=== PATIENT | female | born 1980 | race Caucasian/White ===

== ENCOUNTER → 2018-11-08 | Outpatient (CLI) | payer BC ==
--- NOTE | 2018-11-12 09:43 | MM ---
Reason for exam: screening (asymptomatic). Baseline mammogram. History: Taking hormonal contraceptives beginning at age 25. Physical Findings: Nurse did not find any significant physical abnormalities on exam. MG Screening Mammo w CAD Bilateral CC and MLO view(s) were taken. The breast tissue is heterogeneously dense. This may lower the sensitivity of mammography. Focal asymmetry, two right CC, on left CC and MLO. These results were verbally communicated with the patient and result sheet given to the patient on 11/08/18. ASSESSMENT: Incomplete: need additional imaging evaluation, BI-RAD 0 RECOMMENDATION: Special view mammogram of both breasts.
--- NOTE | 2018-11-12 09:46 | MM ---
Reason for exam: additional evaluation requested from abnormal screening. History: Taking hormonal contraceptives beginning at age 25. Physical Findings: Breast exam preformed at baseline screening. MG Work Up Mamm w CAD BILAT Bilateral spot compression MLO view(s) were taken. Spot compression CC view(s) were taken of the right breast. The breast tissue is heterogeneously dense. This may lower the sensitivity of mammography. Finding: There is an equal density (isodense), obscured oval mass in the lower outer quadrant, anterior position of the left breast. There is no discrete abnormality right breast densities on compression. These results were verbally communicated with the patient and result sheet given to the patient on 11/08/18. ASSESSMENT: Incomplete: need additional imaging evaluation, BI-RAD 0 RECOMMENDATION: Ultrasound of the left breast.
--- NOTE | 2018-11-12 09:47 | USB ---
Reason for exam: additional evaluation requested from abnormal screening. History: Taking hormonal contraceptives beginning at age 25. US Breast Workup Limited LT Left limited breast ultrasound including focal area of concern, retroareolar and axilla demonstrates a 1.1 x 0.6 x 1.0cm oval, solid lesion at 5 o'clock. These results were verbally communicated with the patient and result sheet given to the patient on 11/08/18. ASSESSMENT: Suspicious, BI-RAD 4 RECOMMENDATION: Ultrasound core biopsy of the left breast. Called Dr. Staples with mammographic findings and has scheduled an appointment for the patient for 11/25/18 at 10:[address] Pereira. PRELIMINARY REPORT CALLED AND FAXED TO DR. PEREIRA ON 11/12/18.
== END | disposition home or self-care (01) ==
LOC: RADMAMWWP 10:54
PROVIDERS: ATTEND Obstetrics & Gynecology
DX: Z12.31 Encounter for screening mammogram for malignant neoplasm of breast (principal); R92.8 Other abnormal and inconclusive findings on diagnostic imaging of breast
CPT/HCPCS: 77066; 77067

== ENCOUNTER → 2018-12-12 | Day surgery (SDC) | payer BC ==
[2018-12-12 08:52] VITALS: RESP 16; BMI 24.6
--- NOTE | 2018-12-12 10:19 | USB ---
EXAMINATION TYPE: US biopsy breast VAD LT DATE OF EXAM: 12/12/2018 CLINICAL HISTORY: R92.8 Abnormal mammogram. TECHNIQUE: Ultrasound guided core biopsy of left breast. COMPARISON: 11/08/2018 left breast ultrasound and workup FINDINGS: The procedure of ultrasound guided core biopsy was explained to the patient. Benefits, alternatives, and risks were discussed. An informed consent was then obtained. Preprocedural timeout was performed. The patient was placed in supine positioning for imaging and for the procedure. The overlying skin was prepped and draped in usual sterile fashion. 10 cc of 1% lidocaine was used as anesthetic into the skin and subcutaneous tissue up to the 1.1 x 0.6 x 1.0 cm solid mass at the 5:00 position that is well-circumscribed, possible fibroadenoma. Biopsy was performed to exclude mucinous carcinoma, medullary carcinoma, or less likely invasive ductal carcinoma. Under ultrasound guidance, a 12-gauge vacuum assisted biopsy gun device was used to obtain 5 core samples. Following this, a coil-shaped biopsy marker was left in mass. No postprocedural mammogram was performed as the biopsy marker was clearly defined within the mass at the time of biopsy. The patient tolerated the procedure well without any immediate complication. The patient was kept in the radiology department for short stay after the procedure and then discharged home in stable condition. IMPRESSION: Successful, uncomplicated ultrasound guided core biopsy of a well- circumscribed possible fibroadenoma at the 5:00 position in the left breast, full pathology results to follow. Pathology Results: Benign LEFT BREAST, FIVE O'CLOCK, ULTRASOUND GUIDED CORE BIOPSY: Fibroadenoma. Recommendation Follow up ultrasound of the left breast in 6 months. RA
[2018-12-12 10:39] VITALS: BP 122/83; PULSE 76; TEMP 98.5
== END | disposition home or self-care (01) ==
LOC: RADUSWWP 08:37
PROVIDERS: ATTEND Surgery
DX: D24.2 Benign neoplasm of left breast (principal)
CPT/HCPCS: 88305; 19083; A4648; J2001

== ENCOUNTER → 2022-11-22 | Outpatient (CLI) | payer OTHER ==
--- NOTE | 2022-11-22 14:36 | MM ---
Reason for Exam: Screening (asymptomatic). Last mammogram was performed 4 year(s) and 1 month(s) ago. Patient History: First Full-Term at age 25. Currently using Hormonal Contraceptives, starting at age 25. 12/12/2018, Benign Core Biopsy on the left side. Last menstrual period: 11/22/2022 Risk Values: Nat 5 year model risk: 0.8%. NCI Lifetime model risk: 10.0%. Prior Study Comparison: 11/08/2018 Bilateral Screening Mammogram, [facility]. 11/08/2018 Bilateral Diagnostic Mammogram, [facility]. Tissue Density: The breast tissue is heterogeneously dense. This may lower the sensitivity of mammography. Findings: Analyzed By CAD. There is no suspicious group of microcalcifications in either breast. Stable left breast mass with associated biopsy clip. No new suspicious mass within the left breast. Focal asymmetry within the upper outer right breast at posterior depth. Overall Assessment: Incomplete: need additional imaging evaluation, BI-RAD 0 Management: Diagnostic Mammogram of the right breast. A clinical breast exam by your physician is recommended on an annual basis and results should be correlated with mammographic findings. [facility] will attempt to contact patient to return for supplemental views and ultrasound if indicated. Electronically signed and approved by: Alvaro Choi D.O.
== END | disposition home or self-care (01) ==
LOC: RADMAMWWP 13:40
PROVIDERS: ATTEND Obstetrics & Gynecology
DX: Z12.31 Encounter for screening mammogram for malignant neoplasm of breast (principal)
CPT/HCPCS: 77067

== ENCOUNTER → 2022-11-24 | Outpatient (CLI) | payer OTHER ==
--- NOTE | 2022-11-24 10:41 | MM ---
Reason for Exam: Additional evaluation requested from abnormal screening. Last screening mammogram was performed less than 1 month ago. Patient History: Menarche at age 12. First Full-Term at age 25. Patient has history of breast feeding. Currently using Hormonal Contraceptives, starting at age 25. 12/12/2018, Benign Core Biopsy on the left side. Risk Values: Nat 5 year model risk: 0.9%. NCI Lifetime model risk: 11.9%. Prior Study Comparison: 11/08/2018 Bilateral Screening Mammogram, [facility]. 11/08/2018 Bilateral Diagnostic Mammogram, [facility]. 11/22/2022 Bilateral MG screening mammo w CAD, [facility]. Tissue Density: Right: The breast tissue is heterogeneously dense. This may lower the sensitivity of mammography. Findings: Analyzed By CAD. Focal tissue abnormality in the right breast posterior depth compresses out on spot compression imaging. No new suspicious masses, calcifications or distortions. Overall Assessment: Benign, BI-RAD 2 Management: Screening Mammogram of both breasts in 1 year. Results were given to the patient verbally at the time of exam. Patient should continue monthly self-breast exams. A clinical breast exam by your physician is recommended on an annual basis. This exam should not preclude additional follow-up of suspicious palpable abnormalities. Note on Nat scores and lifetime risk: 1. A Nat score greater than 3% is considered moderate risk. If this is the case, consider specialist referral to assess eligibility for a risk reducing agent. 2. If overall lifetime risk for the development of breast cancer is 20% or higher, the patient may qualify for future screening with alternating mammogram and breast MRI. Electronically signed and approved by: Edward Alvarado DO
== END | disposition home or self-care (01) ==
LOC: RADMAMWWP 09:57
PROVIDERS: ATTEND Obstetrics & Gynecology
DX: R92.8 Other abnormal and inconclusive findings on diagnostic imaging of breast (principal)
CPT/HCPCS: 77061; 77065

== ENCOUNTER → 2024-03-20 | Outpatient (CLI) | payer OTHER ==
--- NOTE | 2024-03-21 12:35 | MM ---
Reason for Exam: Screening (asymptomatic). Last mammogram was performed 1 year(s) and 4 month(s) ago. Patient History: Menarche at age 12. First Full-Term at age 25. Patient has history of breast feeding. Currently using Hormonal Contraceptives, starting at age 25. 12/12/2018, Benign Core Biopsy on the left side. Last menstrual period: 03/02/2024 Risk Values: Nat 5 year model risk: 1.0%. NCI Lifetime model risk: 11.8%. Prior Study Comparison: 11/08/2018 Bilateral Screening Mammogram, [facility]. 11/08/2018 Bilateral Diagnostic Mammogram, [facility]. 11/22/2022 Bilateral MG screening mammo w CAD, [facility]. 11/24/2022 Right MG 3D work up w/cad RT, [facility]. Tissue Density: There are scattered areas of fibroglandular density. Findings: Analyzed By CAD. Left breast biopsy clip. Right breast: There is no suspicious group of microcalcifications or new suspicious mass. Left breast: There is no suspicious group of microcalcifications or new suspicious mass. Overall Assessment: Benign, BI-RAD 2 Management: Screening Mammogram of both breasts in [address] [facility] will attempt to contact patient to return for supplemental views and ultrasound if indicated. Patient should continue monthly self-breast exams. A clinical breast exam by your physician is recommended on an annual basis. This exam should not preclude additional follow-up of suspicious palpable abnormalities. Note on Nat scores and lifetime risk: 1. A Nat score greater than 3% is considered moderate risk. If this is the case, consider specialist referral to assess eligibility for a risk reducing agent. 2. If overall lifetime risk for the development of breast cancer is 20% or higher, the patient may qualify for future screening with alternating mammogram and breast MRI. [facility], , 03/21/2024 12:32 PM. Electronically signed and approved by: Edward Alvarado DO
== END | disposition home or self-care (01) ==
LOC: RADMAMWWP 11:27
PROVIDERS: ATTEND Obstetrics & Gynecology
DX: Z12.31 Encounter for screening mammogram for malignant neoplasm of breast
CPT/HCPCS: 77067